=== PATIENT | female | born 1965 | race Caucasian/White ===

== ENCOUNTER 2018-08-18 12:29 | Inpatient (IN) ==
[2018-08-18] MEDS ORDERED: methylPREDNISolone 125 MG/2 ML VIAL IVP ONE (12:34)
[2018-08-18] MEDS ORDERED: 0.9 % Sodium Chloride 1,000 ML IVC ONE (12:34)
[2018-08-18] MEDS ORDERED: cefTRIAXone 2,000 MG in Water for inj. (sterile) 20 ML 10 ML IVP ONE (12:34)
[2018-08-18] MEDS ORDERED: Azithromycin 500 MG in D5% in Water 250 ML IVPB ONE (12:34)
[2018-08-18] MEDS ORDERED: Ipratropium/Albuterol Neb 3 ML IH ONE (12:34)
--- NOTE | 2018-08-18 12:43 | Emergency Department Note ---
Disposition Clinical Impression: Acute exacerbation of chronic obstructive airways disease Disposition: Admitted As Inpatient Condition: Fair Referrals: Ashely Rodriges, DESIGNER/WRITER [Primary Care Provider] - Forms: ED Satisfaction Letter SOB HPI - General Chief Complaint: ED Shortness of Breath/Dyspnea Stated Complaint: cough, shortness of breath, v/d, ear ache Time Seen by Provider: 08/18/18 12:34 Source: patient, EMS Mode of arrival: EMS Limitations: no limitations Nursing Notes Reviewed: Yes Vital Signs Reviewed: Yes - History of Present Illness Patient relates she started with harsh cough while work on Friday. She has subsequently developed earaches, headache diffuse body aches. States her joints and muscles hurt. She has had periods or shortness of breath which has resulted in some panic. She had one of these spells this morning and called 911. Squad found her to have a saturation of 80% on room air. She states her cough is harsh been nonproductive. She reports some nausea and vomiting with coughing has thrown up about 5-6 times a day. Despite this she has been pushing fluid intake. She has some diarrhea which has been frequently without blood or mucus. The diarrhea seems worse after eating. She reports he will exposures, including influenza. She has a history of COPD and states she has been using an old inhaler without relief. She also has BMI of 47 as a risk factor for influenza complications. Pt Subjective Complaint: shortness of breath, cough Onset (ago): day(s) (4) Context: recent illness Severity: moderate, severe Consistency/Duration: gradually worsening Improves with: rest Worsens with: exertion, coughing Known history of: COPD Associated symptoms: Reports: cough, wheezing, nausea/vomiting. Denies: chest pain, pain with inspiration, fever, sputum production, orthopnea, lower extremity pain, polyuria, polydipsia, parasthesias, palpitations, hemoptysis, diaphoresis, syncope, abdominal pain, rash Treatment prior to arrival: oxygen Cough present: Yes Cough Description: Dry, Hacking Cough Frequency: Intermittent Sputum production: No Sputum Amount: None - Related Data Home oxygen amount: none Home Medications Medication Instructions Recorded Confirmed Baclofen [Lioresal] 10 mg PO TID 07/24/16 07/24/16 Gabapentin [Neurontin] 400 mg PO HS 07/24/16 07/24/16 HydrOXYzine Pamoate [Vistaril] 50 mg PO QID 07/24/16 07/24/16 Ibuprofen [Motrin] 600 mg PO Q8HR PRN 07/24/16 07/24/16 Sertraline [Zoloft] 50 mg PO DAILY 07/24/16 07/24/16 traZODone [TraZODone] 150 mg PO HS 07/24/16 07/24/16 Previous Rx's Medication Instructions Recorded Amoxicillin [Amoxil] 500 mg PO TID #30 capsule 07/24/16 Tramadol HCl [Ultram] 50 mg PO QID PRN #14 tab 07/24/16 Amoxicillin/Clavulanate [Augmentin] 500 mg PO BIDWM #7 tablet 10/03/16 Allergies Allergy/AdvReac Type Severity Reaction Status Date / Time No Known Allergies Allergy Verified 07/24/16 17:36 All systems ED: reviewed and negative except as stated. Past Medical History - Past Medical History Attestation: Yes The following information was validated with the patient. Source: patient, nursing notes reviewed Medical history: Reports: COPD, hypertension, other (Elevated BMI) Surgical history: Reports: appendectomy Psychiatric history: Reports: anxiety, depression - Social History Smoking Status: Current every day smoker Smokeless Tobacco Status: No Alcohol use: Reports: occasionally Drug use: Reports: none Physical Exam - General Limitations: no limitations, age General appearance: alert, in distress - Head Head exam: atraumatic, normocephalic, normal inspection - Eye Eye exam: Present: normal appearance, PERRL, EOMI. Absent: scleral icterus, conjunctival injection - ENT ENT exam: normal exam, normal oropharynx, mucous membranes moist - Neck Neck exam: Present: normal inspection, full ROM, trachea midline. Absent: tenderness, meningismus, lymphadenopathy - Chest Chest inspection: Present: normal inspection, symmetric chest wall rise. Absent: tenderness - Respiratory Respiratory exam: Present: respiratory distress, wheezes, prolonged expiratory phase. Absent: accessory muscle use - Cardiovascular Cardiovascular exam: Present: regular rate, normal rhythm, tachycardia, normal heart sounds - Abdominal Exam Abdominal exam: Present: soft, Non-Tender, normal bowel sounds. Absent: tenderness, distention, guarding, rebound, rigidity - Extremities Exam Extremities exam: Present: normal inspection, full ROM, normal capillary refill. Absent: tenderness, pedal edema - Expanded Lower Extremity Exam Neurovascular/Tendon exam: Present: normal capillary refill. Absent: motor deficit, sensory deficit, tendon deficit Gait: observed and normal - Neurological Exam Neurological exam: Present: alert, oriented X3, CN II-XII intact, motor sensory deficit, reflexes normal - Psychiatric Psychiatric exam: Present: normal affect, normal mood - Skin Skin exam: Present: warm, dry, intact, normal color. Absent: rash, cyanosis, diaphoresis, pallor Course Course Narrative: With return of all testing, care is been discussed with the patient and Dr. Cody. She has been coordinated for continued inpatient treatment on COPD protocol with respiratory treatments and oxygen. Vital Signs Temperature 99.4 F 08/18/18 12:31 Pulse Rate 108 08/18/18 12:31 Respiratory Rate 20 08/18/18 12:31 Blood Pressure 171/87 08/18/18 12:31 O2 Sat by Pulse Oximetry 92 08/18/18 12:31 Temperature 99.4 F 08/18/18 12:31 Pulse Rate 108 08/18/18 13:37 Respiratory Rate 20 08/18/18 13:37 Blood Pressure 138/68 08/18/18 13:37 O2 Sat by Pulse Oximetry 92 08/18/18 13:37 Oxygen Delivery Oxygen Delivery Nasal Cannula Shortness of Breath/Dyspnea - Differential Diagnosis Likely: acute exacerbation of chronic obstructive airways disease, congestive heart failure, pneumonia, asthma with exacerbation - Medical Records Medical records reviewed: Yes I reviewed the patient's medical records. - Lab Data Lab results reviewed: Yes I reviewed the patient's lab results. Lab results narrative: Influenza nasal swab was negative. Result diagrams: 08/18/18 12:50 08/18/18 12:50 Lab Results 08/18/18 08/18/18 08/18/18 Range/Units 12:50 12:50 12:50 WBC 11.4 H (4.3-11.1) K/mcL RBC 4.98 H (3.82-4.97) M/mcL Hgb 13.8 (11.5-15.4) g/dL Hct 43.5 (35.3-44.9) % MCV 87.3 (83.0-100.0) fL MCH 27.7 L (28.0-33.3) pg MCHC 31.7 (31.6-35.5) g/dL RDW 13.9 (11.5-14.5) % Plt Count 270 (140-400) K/mcL MPV 8.6 L (9.4-12.4) fL Immature Gran % 0.9 (0-4) % Seg Neutrophils % 82.4 % Lymphocytes % 9.3 % Monocytes % 7.1 % Eosinophils % 0.0 % Basophils % 0.3 % Neutrophils # 9.4 H (1.6-8.9) K/mcL Lymphocytes # 1.1 (0.6-4.6) K/mcL Monocytes # 0.8 (0.0-1.3) K/mcL Eosinophils # 0.0 (0.0-0.6) K/mcL Basophils # 0.0 (0.0-0.2) K/mcL Sodium 139 (136-145) mEq/L Potassium 4.4 (3.5-5.1) mEq/L Chloride 99 (98-107) mEq/L Carbon Dioxide 34 H (23-29) mEq/L BUN 11 (6-20) mg/dL Creatinine 0.60 (0.60-1.20) mg/dL Est GFR ( Amer) > 60 (> 60) Est GFR (Non-Af Amer) > 60 (> 60) BUN/Creatinine Ratio 18 (6-26) Glucose 149 H (70-105) mg/dL Calculated Osmolality 290 (280-300) Lactic Acid 1.2 (0.5-2.2) mmol/L Calcium 8.8 (8.6-10.3) mg/dL Total Bilirubin 0.4 (0.3-1.0) mg/dL Direct Bilirubin 0.1 (0.0-0.2) mg/dL Indirect Bilirubin 0.3 (0.0-1.2) mg/dL AST 31 (13-39) Units/L ALT 30 (7-52) Units/L Alkaline Phosphatase 99 (34-104) Units/L Troponin I < 0.03 (< 0.04) ng/mL B-Natriuretic Peptide (Less than 100) pg/mL Serum Total Protein 7.5 (6.4-8.9) g/dL Albumin 4.0 (3.5-5.7) g/dL Globulin 3.5 (2.4-3.5) g/dL Albumin/Globulin Ratio 1.1 (1.1-2.2) 08/18/18 Range/Units 12:50 WBC (4.3-11.1) K/mcL RBC (3.82-4.97) M/mcL Hgb (11.5-15.4) g/dL Hct (35.3-44.9) % MCV (83.0-100.0) fL MCH (28.0-33.3) pg MCHC (31.6-35.5) g/dL RDW (11.5-14.5) % Plt Count (140-400) K/mcL MPV (9.4-12.4) fL Immature Gran % (0-4) % Seg Neutrophils % % Lymphocytes % % Monocytes % % Eosinophils % % Basophils % % Neutrophils # (1.6-8.9) K/mcL Lymphocytes # (0.6-4.6) K/mcL Monocytes # (0.0-1.3) K/mcL Eosinophils # (0.0-0.6) K/mcL Basophils # (0.0-0.2) K/mcL Sodium (136-145) mEq/L Potassium (3.5-5.1) mEq/L Chloride (98-107) mEq/L Carbon Dioxide (23-29) mEq/L BUN (6-20) mg/dL Creatinine (0.60-1.20) mg/dL Est GFR ( Amer) (> 60) Est GFR (Non-Af Amer) (> 60) BUN/Creatinine Ratio (6-26) Glucose (70-105) mg/dL Calculated Osmolality (280-300) Lactic Acid (0.5-2.2) mmol/L Calcium (8.6-10.3) mg/dL Total Bilirubin (0.3-1.0) mg/dL Direct Bilirubin (0.0-0.2) mg/dL Indirect Bilirubin (0.0-1.2) mg/dL AST (13-39) Units/L ALT (7-52) Units/L Alkaline Phosphatase (34-104) Units/L Troponin I (< 0.04) ng/mL B-Natriuretic Peptide 39 (Less than 100) pg/mL Serum Total Protein (6.4-8.9) g/dL Albumin (3.5-5.7) g/dL Globulin (2.4-3.5) g/dL Albumin/Globulin Ratio (1.1-2.2) - Radiology Data Radiology results reviewed: Yes I reviewed the patient's radiology results. Single view chest x-ray is performed. This does not demonstrate evidence for infiltrate, effusion, pneumothorax, foreign body or heart failure. The cardiac silhouette is mildly enlarged. I do not see abnormality to the osseous structures of the chest. This is on my interpretation. Impressions Chest X-Ray 08/18/18 12:34 IMPRESSION: Cardiomegaly with mild congestive heart failure. D/ / 08/18/2018 12:58:26 Shelly Delgado MD / jana Interpreting Provider: Shelly Delgado MD - EKG Data EKG attestation: Yes I reviewed and interpreted this EKG. EKG shows normal: Reports: sinus rhythm, axis, intervals, QRS complexes, ST-T waves Rate: Reports: tachycardia (108) Interpretation: Reports: no acute changes, normal EKG
[2018-08-18 13:05] LABS: Basophils % 0.3 %; Hematocrit 43.5 % (35.3-44.9); Hemoglobin 13.8 g/dL (11.5-15.4); Immature Granulocytes % 0.9 % (0-4); Lymphocytes # 1.1 K/mcL (0.6-4.6); Lymphocytes % 9.3 %; Mean Corpuscular HGB Conc 31.7 g/dL (31.6-35.5); Mean Corpuscular Hemoglobin 27.7 pg (28.0-33.3); Mean Corpuscular Volume 87.3 fL (83.0-100.0); Mean Platelet Volume 8.6 fL (9.4-12.4); Monocytes # 0.8 K/mcL (0.0-1.3); Monocytes % 7.1 %; Neutrophils # 9.4 K/mcL (1.6-8.9); Platelet Count 270 K/mcL (140-400); Red Blood Count 4.98 M/mcL (3.82-4.97); Red Cell Distribution Width 13.9 % (11.5-14.5); Segmented Neutrophils % 82.4 %
[2018-08-18 13:20] LABS: Alanine Aminotransferase 30 Units/L (7-52); Albumin/Globulin Ratio 1.1 (1.1-2.2); Alkaline Phosphatase 99 Units/L (34-104); Aspartate Amino Transferase 31 Units/L (13-39); BUN/Creatinine Ratio 18 (6-26); Bilirubin,Direct 0.1 mg/dL (0.0-0.2); Bilirubin,Indirect 0.3 mg/dL (0.0-1.2); Bilirubin,Total 0.4 mg/dL (0.3-1.0); Blood Urea Nitrogen 11 mg/dL (6-20); Calcium 8.8 mg/dL (8.6-10.3); Carbon Dioxide 34 mEq/L (23-29); Chloride 99 mEq/L (98-107); Globulin 3.5 g/dL (2.4-3.5); Glucose 149 mg/dL (70-105); Osmolality,Calculated 290 (280-300); Potassium 4.4 mEq/L (3.5-5.1); Sodium 139 mEq/L (136-145); Total Protein 7.5 g/dL (6.4-8.9); Troponin I < 0.03 ng/mL (< 0.04); eGFR For Non-African Americans > 60 (> 60)
[2018-08-18] MEDS ORDERED: 0.9 % Sodium Chloride 1,000 ML IVC SCH (13:56)
[2018-08-18] MEDS ORDERED: Mag Hydrox/Al Hydrox/Simeth 30 ML UDC PO PRN (13:56)
[2018-08-18] MEDS ORDERED: MOM Conc 10 ML UD.LIQ PO PRN (13:56)
[2018-08-18] MEDS ORDERED: Ondansetron 4 MG/2 ML VIAL IVP PRN (13:56)
[2018-08-18] MEDS ORDERED: Naloxone 0.4 MG/ML INJ IVP PRN (13:56)
[2018-08-18] MEDS: Ibuprofen 600 MG TABLET PO PRN (15:18)
[2018-08-18] MEDS ORDERED: Ipratropium/Albuterol Neb 3 ML IH SCH (16:00)
[2018-08-18] MEDS: hydrOXYzine pamoate 25 MG CAPSULE PO SCH ×2 (16:36→20:25)
[2018-08-18] MEDS ORDERED: predniSONE 20 MG TABLET PO SCH (17:00)
--- NOTE | 2018-08-18 18:17 | Internal Med History&Physical ---
Date of Encounter: 08/18/18 Time of Encounter: 17:40 Assessment and Plan (1) Acute bronchitis Current visit: Yes Status: Acute She has been started on Rocephin and Zithromax. Lactobacillus will be added. Chest CT will be done to further evaluate. Viral respiratory panel will be ordered. Qualifiers: Bronchitis organism: unspecified organism Qualified Code(s): J20.9 - Acute bronchitis, unspecified (2) Anxiety and depression Current visit: Yes Status: Chronic Continue Vistaril, Zoloft, and trazodone. Xanax will be ordered for prn use. (3) ALVAREZ (obstructive sleep apnea) Current visit: Yes Status: Chronic Continue CPAP at bedtime (4) Morbid obesity with BMI of 50.0-59.9, adult Current visit: Yes Status: Chronic TSH will be checked in a.m. Internal Medicine - H&P: HPI Chief complaint: Cough and dyspnea Admitted From: Emergency Dept Plans for Post Hospital Care: Home History of present illness: Ms. Mayes is a 53 year old female who came to emergency room complaining of cough and dyspnea onset July 18. She states the cough was nonproductive. She reports fevers up to 101 and sensation of chills. She had several episodes of nonbloody vomiting and diarrhea. She took OTC medication without significant improvement. She came to emergency room and was evaluated and was felt to have exacerbation of COPD. She was admitted to [facility] floor for ongoing care needs. Respiratory history is significant for having smoked since age 21 never exceeding one half pack per day. She denies home oxygen use. She has been diagnosed with ALVAREZ and uses CPAP at bedtime. Past Med Surg Social Fam HX - Past Medical History Medical history: COPD, other Psychiatric history: anxiety, depression, panic disorder, PTSD - Past Surgical History Surgical History: appendectomy Additional surgical history: Tonsillectomy, [place] Teeth extraction - Social History Smoking Status: Current every day smoker Packs per day: 1/2 PPD Smokeless Tobacco Status: No Alcohol use: none Drug use: none Internal Medicine - H&P: Meds HydrOXYzine Pamoate [Vistaril] 50 mg PO QID 07/24/16 [History] Ibuprofen [Motrin] 800 mg PO Q8HR PRN 07/24/16 [History] Sertraline [Zoloft] 200 mg PO DAILY 07/24/16 [History] traZODone [TraZODone] 150 mg PO HS 07/24/16 [History] Albuterol Sulfate [Albuterol Inhaler] 1 puff IH Q4HR PRN 08/18/18 [History] Allergy/AdvReac Type Severity Reaction Status Date / Time Erythromycin Base AdvReac Diarrhea Verified 08/18/18 14:41 ROS unobtainable: due to endotracheal tube (Cardiovascular: She denies hypertension TN heart failure angina DVT or pulmonary embolusRespiratory: As per history of present illnessGI: She denies disorders of her liver gallbladder or exocrine pancreasGU: She denies hematuria dysuria or kidney stonesNeurologic: She denies large distortion strokes or seizures.Endocrine: She denies diabetes thyroid disease or hyperlipidemiaHematology/oncology: She denies blood disorders cancers or anemiaPsychiatric: She has anxiety) All Systems PM: A 10-system review of systems was performed and is negative for pertinent findings except as documented above in the HPI. Review of systems: Gen.: She states her weight has increased over 100 pounds in the past year Cardiovascular: She denies hypertension TN heart failure angina DVT or pulmonary embolus Respiratory: As per history of present illness GI: She denies disorders of her liver gallbladder or exocrine pancreas : She denies hematuria dysuria or kidney stones Neurologic: She denies large distribution strokes or seizures. Endocrine: She denies diabetes thyroid disease or hyperlipidemia Hematology/oncology: She denies blood disorders cancers or anemia Psychiatric: She has depression and anxiety with panic attacks periodically. Sh e denies other mental health diagnoses. 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 She has had shoulder pain from frequent coughing the past few days - Constitutional Vitals: Temp Pulse Resp BP Pulse Ox 99.3 F 110 22 160/98 90 08/18/18 14:27 08/18/18 14:27 08/18/18 16:07 08/18/18 14:27 08/18/18 16:07 Exam: Gen.: She is well-developed morbidly obese female lying in bed who appears in mi ld to moderate dyspnea. She is wearing oxygen by oxy mask. HEENT: Head is atraumatic and normocephalic. Eyes: EOMI. There is no scleral icterus. Mouth: Mucosa is moist. Neck: Supple and nontender. There is no thyromegaly or adenopathy noted. Heart: Regular with rate approximately 104/m. Lungs: She has diminished breath sound diffusely. No wheezes or crackles are heard. Abdomen: She has a very large abdomen. It is nontender to palpation. Extremities: There is no cyanosis edema or clubbing noted. Dorsalis pedis and posttibial pulses are trace to 1+ palpable bilaterally. Neurologic: Mental status: She is talkative and a good historian. Cranial nerves: Smile is symmetric. Forehead wrinkles bilaterally. Tongue protrudes midline. EOMI. Motor: There is no pronator drift. Cerebellar: Finger to nose is intact bilaterally. Skin: Warm and dry Internal Med - H&P Results - Labs CBC & Chem 7: 08/18/18 12:50 08/18/18 12:50 Labs: Short CBC 08/18/18 Range/Units 12:50 WBC 11.4 H (4.3-11.1) K/mcL Hgb 13.8 (11.5-15.4) g/dL Hct 43.5 (35.3-44.9) % Plt Count 270 (140-400) K/mcL Neutrophils # 9.4 H (1.6-8.9) K/mcL BMP 08/18/18 12:50 Sodium 139 Potassium 4.4 Chloride 99 Carbon Dioxide 34 H BUN 11 Creatinine 0.60 Glucose 149 H Calcium 8.8 Cardiac Enzymes 08/18/18 Range/Units 12:50 Troponin I < 0.03 (< 0.04) ng/mL Liver Function 08/18/18 Range/Units 12:50 Total Bilirubin 0.4 (0.3-1.0) mg/dL Direct Bilirubin 0.1 (0.0-0.2) mg/dL AST 31 (13-39) Units/L ALT 30 (7-52) Units/L Alkaline Phosphatase 99 (34-104) Units/L Albumin 4.0 (3.5-5.7) g/dL - Impressions ITS Impressions Chest X-Ray 08/18/18 12:34 IMPRESSION: Cardiomegaly with mild congestive heart failure. D/ / 08/18/2018 12:58:26 Shelly Delgado MD / ashley Interpreting Provider: Shelly Delgado MD
[2018-08-18] MEDS: ALPRAZolam 0.5 MG TABLET PO PRN (18:39)
[2018-08-18] MEDS: predniSONE 20 MG TABLET PO SCH (20:25)
[2018-08-18] MEDS: traZODone 50 MG TABLET PO SCH (20:25)
--- NOTE | 2018-08-18 21:03 | Electrocardiograph Report ---
[place] [id number] Test Date: 2018-08-18 Pat Name: Geno Mayes Department: EDP-14 Room: [facility] Gender: F Principal Java Developer: : 1965 Requested By: Shai Candelario Order Number: [id number] Reading MD: Gaye Ravi Measurements Intervals [place] Rate: 108 P: 69 CA: 132 QRS: 79 QRSD: 92 T: 62 QT: 330 QTc: 443 Interpretive Statements Sinus tachycardia Electronically Signed On 08-18-2018 21:02:25 EST by Gaye Ravi
[2018-08-18] MEDS: Albuterol 2.5 MG/3 ML NEBULIZER IH PRN (22:40)
[2018-08-19] MEDS: ALPRAZolam 0.5 MG TABLET PO PRN (01:45)
[2018-08-19] MEDS: Ibuprofen 600 MG TABLET PO PRN (01:45)
[2018-08-19] MEDS: Albuterol 2.5 MG/3 ML NEBULIZER IH PRN (04:14)
[2018-08-19 05:54] LABS: Basophils # 0.1 K/mcL (0.0-0.2); Basophils % 0.7 %; Hemoglobin 12.7 g/dL (11.5-15.4); Immature Granulocytes % 2.1 % (0-4); Lymphocytes # 1.4 K/mcL (0.6-4.6); Lymphocytes % 12.9 %; Mean Corpuscular HGB Conc 30.2 g/dL (31.6-35.5); Mean Corpuscular Hemoglobin 27.3 pg (28.0-33.3); Mean Corpuscular Volume 90.3 fL (83.0-100.0); Mean Platelet Volume 8.6 fL (9.4-12.4); Monocytes # 0.7 K/mcL (0.0-1.3); Monocytes % 7.1 %; Neutrophils # 8.1 K/mcL (1.6-8.9); Platelet Count 277 K/mcL (140-400); Red Blood Count 4.65 M/mcL (3.82-4.97); Red Cell Distribution Width 14.3 % (11.5-14.5); Segmented Neutrophils % 77.2 %
[2018-08-19 06:11] LABS: BUN/Creatinine Ratio 24 (6-26); Blood Urea Nitrogen 15 mg/dL (6-20); Calcium 8.5 mg/dL (8.6-10.3); Carbon Dioxide 33 mEq/L (23-29); Chloride 102 mEq/L (98-107); Glucose 195 mg/dL (70-105); Magnesium 2.4 mg/dL (1.6-2.6); Osmolality,Calculated 298 (280-300); Potassium 4.3 mEq/L (3.5-5.1); Sodium 141 mEq/L (136-145); eGFR For Non-African Americans > 60 (> 60)
[2018-08-19 06:51] LABS: Platelet Estimate Normal (Normal)
--- NOTE | 2018-08-19 09:53 | Internal Med Progress Note ---
Date of Encounter: 08/19/18 Time of Encounter: 09:40 - Assessment and plan (1) Acute bronchitis Current Visit: Yes Status: Acute Assessment and plan: August 19. Continue Rocephin, Zithromax, and lactobacillus. Viral respiratory p arnol pending. Qualifiers: Bronchitis organism: unspecified organism Qualified Code(s): J20.9 - Acute bronchitis, unspecified (2) Anxiety and depression Current Visit: Yes Status: Chronic Assessment and plan: August 19. Continue Vistaril, Zoloft, trazodone, and prn Xanax. (3) ALVAREZ (obstructive sleep apnea) Current Visit: Yes Status: Chronic Assessment and plan: August 19. Continue CPAP at bedtime (4) Morbid obesity with BMI of 50.0-59.9, adult Current Visit: Yes Status: Chronic Assessment and plan: August 19. TSH has been ordered. - Subjective Interval history: August 19. She has no new complaints and feels slightly better. She is still dyspneic. - Constitutional Vitals: Temp Pulse Resp BP Pulse Ox 98 F 101 16 100/58 92 08/19/18 06:57 08/19/18 06:57 08/19/18 06:57 08/19/18 06:57 08/19/18 06:57 Exam: She is sitting on the side of the bed and appears slightly dyspneic at rest. Her affect is cheerful. Oxygen level decreased to 85% with removal of supplemental O2. I reviewed her medications and lab results. Chest CT could not be done because of inability to lie flat. Internal Medicine: Result - Labs CBC & Chem 7: 08/19/18 05:11 08/19/18 05:11 Labs: Short CBC 08/18/18 08/19/18 Range/Units 12:50 05:11 WBC 11.4 H 10.5 (4.3-11.1) K/mcL Hgb 13.8 12.7 (11.5-15.4) g/dL Hct 43.5 42.0 (35.3-44.9) % Plt Count 270 277 (140-400) K/mcL Neutrophils # 9.4 H 8.1 (1.6-8.9) K/mcL BMP 08/18/18 08/19/18 12:50 05:11 Sodium 139 141 Potassium 4.4 4.3 Chloride 99 102 Carbon Dioxide 34 H 33 H BUN 11 15 Creatinine 0.60 0.62 Glucose 149 H 195 H Calcium 8.8 8.5 L Cardiac Enzymes 08/18/18 Range/Units 12:50 Troponin I < 0.03 (< 0.04) ng/mL Liver Function 08/18/18 Range/Units 12:50 Total Bilirubin 0.4 (0.3-1.0) mg/dL Direct Bilirubin 0.1 (0.0-0.2) mg/dL AST 31 (13-39) Units/L ALT 30 (7-52) Units/L Alkaline Phosphatase 99 (34-104) Units/L Albumin 4.0 (3.5-5.7) g/dL - Impressions Impressions Chest X-Ray 08/18/18 12:34 IMPRESSION: Cardiomegaly with mild congestive heart failure. D/ / 08/18/2018 12:58:26 Shelly Delgado MD / ashley Interpreting Provider: Shelly Delgado MD Consult Discharge Plan - Plan Referrals: Ashely Rodriges, BINDER SORTER [Primary Care Provider] - 1 week
[2018-08-19] MEDS: hydrOXYzine pamoate 25 MG CAPSULE PO SCH ×4 (10:20→20:09)
[2018-08-19] MEDS: predniSONE 20 MG TABLET PO SCH ×2 (10:21→16:08)
[2018-08-19] MEDS: 0.9 % Sodium Chloride 1,000 ML IVC SCH ×3 (10:27→11:14)
[2018-08-19] MEDS: Ibuprofen 600 MG TABLET PO SCH ×3 (10:27→20:10)
[2018-08-19] MEDS: cefTRIAXone 2,000 MG in Water for inj. (sterile) 20 ML 20 ML IVPB SCH (12:29)
[2018-08-19] MEDS: Azithromycin 500 MG in D5% in Water 250 ML IVPB SCH (12:30)
[2018-08-19 15:18] LABS: ABG Base Excess 6 mEq/L (-2 to 3); ABG HCO3 37 mEq/L (21-27); ABG Oxygen Saturation 91 % (95-98); ABG PCO2 88 mmHg (35-45); ABG PH 7.23 pH Units (7.32-7.45); ABG PO2 75 mmHg (85-104); ABG TCO2 40 mEq/L (20-26)
[2018-08-19 16:53] LABS: ABG Base Excess 7 mEq/L (-2 to 3); ABG HCO3 37 mEq/L (21-27); ABG Oxygen Saturation 92 % (95-98); ABG PCO2 81 mmHg (35-45); ABG PH 7.27 pH Units (7.32-7.45); ABG PO2 78 mmHg (85-104); ABG TCO2 40 mEq/L (20-26); Blood Gas Respiration Rate 12
[2018-08-19] MEDS: traZODone 50 MG TABLET PO SCH (20:10)
[2018-08-20] MEDS: Ibuprofen 600 MG TABLET PO SCH ×4 (03:43→23:32)
[2018-08-20] MEDS: ALPRAZolam 0.5 MG TABLET PO PRN (06:22)
[2018-08-20] MEDS: 0.9 % Sodium Chloride 1,000 ML IVC SCH (06:22)
[2018-08-20 07:04] LABS: Basophils # 0.1 K/mcL (0.0-0.2); Basophils % 0.6 %; Eosinophils % 0.2 %; Hematocrit 41.9 % (35.3-44.9); Hemoglobin 12.5 g/dL (11.5-15.4); Lymphocytes # 2.3 K/mcL (0.6-4.6); Lymphocytes % 25.7 %; Mean Corpuscular HGB Conc 29.8 g/dL (31.6-35.5); Mean Corpuscular Hemoglobin 27.2 pg (28.0-33.3); Mean Corpuscular Volume 91.1 fL (83.0-100.0); Mean Platelet Volume 8.6 fL (9.4-12.4); Monocytes # 0.5 K/mcL (0.0-1.3); Monocytes % 5.9 %; Neutrophils # 5.8 K/mcL (1.6-8.9); Platelet Count 275 K/mcL (140-400); Red Cell Distribution Width 14.2 % (11.5-14.5); Segmented Neutrophils % 65.6 %
[2018-08-20 07:24] LABS: BUN/Creatinine Ratio 29 (6-26); Blood Urea Nitrogen 16 mg/dL (6-20); Calcium 8.5 mg/dL (8.6-10.3); Carbon Dioxide 35 mEq/L (23-29); Chloride 102 mEq/L (98-107); Glucose 125 mg/dL (70-105); Osmolality,Calculated 295 (280-300); Potassium 4.2 mEq/L (3.5-5.1); Sodium 141 mEq/L (136-145); eGFR For Non-African Americans > 60 (> 60)
[2018-08-20 07:38] LABS: Thyroid Stimulating Hormone 1.241 mcIU/mL (0.340-5.600)
[2018-08-20 08:19] LABS: ABG Base Excess 6 mEq/L (-2 to 3); ABG HCO3 37 mEq/L (21-27); ABG Oxygen Saturation 88 % (95-98); ABG PCO2 87 mmHg (35-45); ABG PH 7.23 pH Units (7.32-7.45); ABG PO2 69 mmHg (85-104); ABG TCO2 39 mEq/L (20-26); Blood Gas Respiration Rate 12
[2018-08-20 08:43] LABS: Platelet Estimate Normal (Normal)
[2018-08-20] MEDS: predniSONE 20 MG TABLET PO SCH (08:47)
[2018-08-20] MEDS: hydrOXYzine pamoate 25 MG CAPSULE PO SCH ×4 (08:48→21:19)
--- NOTE | 2018-08-20 10:02 | Internal Med Progress Note ---
Date of Encounter: 08/20/18 Time of Encounter: 09:52 - Assessment and plan (1) Acute bronchitis Current Visit: Yes Status: Acute Assessment and plan: August 19. Continue Rocephin, Zithromax, and lactobacillus. Viral respiratory p arnol pending. Qualifiers: Bronchitis organism: unspecified organism Qualified Code(s): J20.9 - Acute bronchitis, unspecified (2) Anxiety and depression Current Visit: Yes Status: Chronic Assessment and plan: August 19. Continue Vistaril, Zoloft, trazodone, and prn Xanax. August 20. Decrease Vistaril to avoid excessive sedation. Continue Zoloft, trazodone, and prn Xanax. (3) ALVAREZ (obstructive sleep apnea) Current Visit: Yes Status: Chronic Assessment and plan: August 19. Continue CPAP at bedtime (4) Morbid obesity with BMI of 50.0-59.9, adult Current Visit: Yes Status: Chronic Assessment and plan: August 19. TSH has been ordered. August 20. TSH was normal at 1.241. - Subjective Interval history: August 19. She has no new complaints and feels slightly better. She is still dyspneic. August 20. She has no new complaints. She still feels dyspneic. - Constitutional Vitals: Temp Pulse Resp BP Pulse Ox 98.2 F 88 20 114/75 87 08/20/18 07:15 08/20/18 07:15 08/20/18 07:15 08/20/18 07:15 08/20/18 07:15 Exam: She is lying in bed and appears in no acute distress. She is wearing BiPAP. She is alert and talkative. Lungs show a few scattered rhonchi. No inspiratory crackles are heard. Extremities show no edema. I reviewed her medications, lab results, and x-ray report. Internal Medicine: Result - Labs CBC & Chem 7: 08/20/18 06:40 08/20/18 06:40 Labs: Short CBC 08/20/18 Range/Units 06:40 WBC 8.9 (4.3-11.1) K/mcL Hgb 12.5 (11.5-15.4) g/dL Hct 41.9 (35.3-44.9) % Plt Count 275 (140-400) K/mcL Neutrophils # 5.8 (1.6-8.9) K/mcL BMP 08/20/18 06:40 Sodium 141 Potassium 4.2 Chloride 102 Carbon Dioxide 35 H BUN 16 Creatinine 0.56 L Glucose 125 H Calcium 8.5 L - ABG Interpretation ABG results: ABG ABG pH 7.23 pH Units (7.32-7.45) L 08/20/18 08:12 ABG pCO2 87 mmHg (35-45) H* 08/20/18 08:12 ABG pO2 69 mmHg (85-104) L 08/20/18 08:12 ABG O2 Saturation 88 % (95-98) L 08/20/18 08:12 - Impressions Impressions Chest X-Ray 08/20/18 07:00 IMPRESSION: Stable exam with mild pulmonary vascular congestion without overt pulmonary edema along with cardiomegaly. D/ / 08/20/2018 08:24:56 Minor Duncan MD / [place] Interpreting Provider: Minor Duncan MD Consult Discharge Plan - Plan Referrals: Ashely Rodriges, OIL PIPELINE OPERATOR [Primary Care Provider] - 1 week
[2018-08-20] MEDS: cefTRIAXone 2,000 MG in Water for inj. (sterile) 20 ML 20 ML IVPB SCH (13:16)
[2018-08-20] MEDS: Azithromycin 500 MG in D5% in Water 250 ML IVPB SCH (13:17)
[2018-08-20] MEDS: predniSONE 10 MG TABLET PO SCH (16:26)
[2018-08-20] MEDS: Acetaminophen 325 MG TABLET PO PRN (17:55)
[2018-08-20] MEDS: traZODone 50 MG TABLET PO SCH (21:20)
[2018-08-21] MEDS: Ibuprofen 600 MG TABLET PO SCH ×4 (04:30→21:15)
[2018-08-21] MEDS: hydrOXYzine pamoate 25 MG CAPSULE PO SCH ×4 (08:33→21:15)
[2018-08-21] MEDS: predniSONE 10 MG TABLET PO SCH ×2 (08:34→16:27)
[2018-08-21] MEDS: Acetaminophen 325 MG TABLET PO PRN (09:47)
[2018-08-21] MEDS: ALPRAZolam 0.5 MG TABLET PO PRN ×2 (09:47→21:16)
[2018-08-21] MEDS: cefTRIAXone 2,000 MG in Water for inj. (sterile) 20 ML 20 ML IVPB SCH (11:47)
[2018-08-21] MEDS: Azithromycin 500 MG in D5% in Water 250 ML IVPB SCH (11:48)
--- NOTE | 2018-08-21 12:23 | Internal Med Progress Note ---
Date of Encounter: 08/21/18 Time of Encounter: 12:15 - Assessment and plan (1) Acute bronchitis Current Visit: Yes Status: Acute Assessment and plan: August 19. Continue Rocephin, Zithromax, and lactobacillus. Viral respiratory p arnol pending. August 21. Continue present treatment. Recheck ABG in a.m. Add Symbicort. Possible discharge tomorrow if stable. Qualifiers: Bronchitis organism: unspecified organism Qualified Code(s): J20.9 - Acute bronchitis, unspecified (2) Anxiety and depression Current Visit: Yes Status: Chronic Assessment and plan: August 19. Continue Vistaril, Zoloft, trazodone, and prn Xanax. August 20. Decrease Vistaril to avoid excessive sedation. Continue Zoloft, trazodone, and prn Xanax. (3) ALVAREZ (obstructive sleep apnea) Current Visit: Yes Status: Chronic Assessment and plan: August 19. Continue CPAP at bedtime (4) Morbid obesity with BMI of 50.0-59.9, adult Current Visit: Yes Status: Chronic Assessment and plan: August 19. TSH has been ordered. August 20. TSH was normal at 1.241. - Subjective Interval history: August 19. She has no new complaints and feels slightly better. She is still dyspneic. August 20. She has no new complaints. She still feels dyspneic. August 21. She has no new complaints and feels slightly better. - Constitutional Vitals: Temp Pulse Resp BP Pulse Ox 97.9 F 61 17 101/67 94 08/21/18 07:00 08/21/18 07:00 08/21/18 07:00 08/21/18 07:00 08/21/18 07:00 Exam: She is sitting on the side of bed eating lunch. Oxygen saturation was 94-98% with her oxygen mask slightly dislodged. Lungs show prolonged expiratory phase with diminished airflow overall. No inspiratory crackles are heard. I reviewed her medications and lab results. Internal Medicine: Result - Labs CBC & Chem 7: 08/20/18 06:40 08/20/18 06:40 - ABG Interpretation ABG results: ABG ABG pH 7.23 pH Units (7.32-7.45) L 08/20/18 08:12 ABG pCO2 87 mmHg (35-45) H* 08/20/18 08:12 ABG pO2 69 mmHg (85-104) L 08/20/18 08:12 ABG O2 Saturation 88 % (95-98) L 08/20/18 08:12 Consult Discharge Plan - Plan Referrals: Ashely Rodriges, TALENT ACQUISITION ASSOCIATE [Primary Care Provider] - 1 week
[2018-08-21] MEDS: Budesonide/Formoterol 160/4.5 1 PUFF INH IH SCH ×2 (13:01→21:23)
[2018-08-21 13:32] LABS: ABG Base Excess 8 mEq/L (-2 to 3); ABG HCO3 38 mEq/L (21-27); ABG Oxygen Saturation 96 % (95-98); ABG PCO2 75 mmHg (35-45); ABG PH 7.31 pH Units (7.32-7.45); ABG PO2 98 mmHg (85-104); ABG TCO2 40 mEq/L (20-26)
[2018-08-21] MEDS: traZODone 50 MG TABLET PO SCH (21:15)
[2018-08-22] MEDS: Ibuprofen 600 MG TABLET PO SCH ×3 (04:30→17:00)
[2018-08-22 07:42] VITALS: BP 108/55
[2018-08-22] MEDS: predniSONE 10 MG TABLET PO SCH ×2 (08:13→17:00)
[2018-08-22] MEDS: hydrOXYzine pamoate 25 MG CAPSULE PO SCH ×3 (08:13→17:00)
[2018-08-22] MEDS ORDERED: Azithromycin 250 MG TABLET PO SCH (09:00)
[2018-08-22] MEDS: Albuterol 2.5 MG/3 ML NEBULIZER IH PRN (11:07)
[2018-08-22] MEDS: Budesonide/Formoterol 160/4.5 1 PUFF INH IH SCH (11:07)
[2018-08-22] MEDS: cefTRIAXone 2,000 MG in Water for inj. (sterile) 20 ML 20 ML IVPB SCH (12:50)
--- NOTE | 2018-08-22 14:42 | Discharge Summary ---
Orders not resulted at time of discharge: Pending orders 08/18/18 13:05 Culture,Blood [BC] Stat 08/21/18 13:20 Respiratory Infection Panel [MOLMIC] Routine Date of Encounter: 08/22/18 Time of Encounter: 14:30 - Discharge Diagnosis (1) Acute bronchitis Priority: Primary Status: Acute Qualifiers: Bronchitis organism: unspecified organism Qualified Code(s): J20.9 - Acute bronchitis, unspecified (2) Anxiety and depression Priority: Secondary Status: Chronic (3) ALVAREZ (obstructive sleep apnea) Priority: Secondary Status: Chronic (4) Morbid obesity with BMI of 50.0-59.9, adult Priority: Secondary Status: Chronic (5) Conjunctivitis Priority: Secondary Status: Acute Qualifiers: Conjunctivitis type: acute Acute conjunctivitis type: unspecified Laterality: left Qualified Code(s): H10.32 - Unspecified acute conjunctivitis, left eye Hospital course: Ms. Mayes is a 53 year old female who came to emergency room complaining of cough and dyspnea onset July 18. She states the cough was nonproductive. She reports fevers up to 101 and sensation of chills. She had several episodes of nonbloody vomiting and diarrhea. She took OTC medication without significant improvement. She came to emergency room and was evaluated and was felt to have exacerbation of COPD. She was admitted to [facility] floor for ongoing care needs. Initial orders were written by the emergency room physician. I saw her on August 18 and performed the history and physical. She was started empirically on Rocephin and Zithromax with lactobacillus. She required BiPAP for acute respiratory insufficiency. Her Vistaril dose was decreased to 25 mg 4 times a day to avoid oversedation. Follow-up blood gas on August 21 showed significant improvement. Leukocytosis and left shift resolved by day of discharge. She will continue with antibiotic, probiotic, and prednisone for 3 additional days at discharge. I encouraged her to become a nonsmoker. Room air oximetry on day of discharge showed saturation dropping to 84% prior to ambulation. Patient became dyspneic and required immediate restitution of supplemental oxygen for comfort and safety. She will be prescribed oxygen at 2 L/m by nasal cannula 06/01 with portable gas and concentrator. Qualifying diagnosis is COPD with hypoxemia not remedied by bronchodilators. She will bleed oxygen into her CPAP machine for use at bedtime. She developed left eye conjunctivitis and will be given TobraDex for 3 days at discharge. TSH returned normal at 1.2401. On August 22 she felt improved and stable for discharge home. She will follow with her PCP Ashely Rodriges CNP within 1 week. - Time Spent with Patient Total time spent providing and/or coordinating discharge services: - Discharge Medications Prescriptions: New Cefuroxime PO [Ceftin] 500 mg PO Q12HR #6 tablet Azithromycin [Zithromax] 250 mg PO DAILY #3 tablet predniSONE [PredniSONE] 10 mg PO BIDWM #6 tablet Tobramycin/Dex Opth DROPS [Tobradex Opth Drops] 1 drop LEFT EYE Q8H 3 Days #1 bottle HydrOXYzine Pamoate [Vistaril] 25 mg PO QID 365 Days capsule Continue traZODone [TraZODone] 150 mg PO HS Ibuprofen [Motrin] 800 mg PO Q8HR PRN PRN Reason: Pain Sertraline [Zoloft] 200 mg PO DAILY Albuterol Sulfate [Albuterol Inhaler] 1 puff IH Q4HR PRN PRN Reason: Wheezing Discontinued HydrOXYzine Pamoate [Vistaril] 50 mg PO QID Home Medications: Ibuprofen [Motrin] 800 mg PO Q8HR PRN 07/24/16 [History] Sertraline [Zoloft] 200 mg PO DAILY 07/24/16 [History] traZODone [TraZODone] 150 mg PO HS 07/24/16 [History] Albuterol Sulfate [Albuterol Inhaler] 1 puff IH Q4HR PRN 08/18/18 [History] Azithromycin [Zithromax] 250 mg PO DAILY #3 tablet 08/22/18 [Rx] Cefuroxime PO [Ceftin] 500 mg PO Q12HR #6 tablet 08/22/18 [Rx] HydrOXYzine Pamoate [Vistaril] 25 mg PO QID 365 Days capsule 08/22/18 [Rx] Tobramycin/Dex Opth DROPS [Tobradex Opth Drops] 1 drop LEFT EYE Q8H 3 Days #1 bottle 08/22/18 [Rx] predniSONE [PredniSONE] 10 mg PO BIDWM #6 tablet 08/22/18 [Rx] Allergies/Adverse Reactions: Allergy/AdvReac Type Severity Reaction Status Date / Time Erythromycin Base AdvReac Diarrhea Verified 08/18/18 14:41 Date of admission: 08/19/18 12:29 Primary care physician: Ashely Rodriges CNP - Constitutional Vitals: Temp Pulse Resp BP Pulse Ox 98.3 F 70 20 108/55 96 08/22/18 07:41 08/22/18 07:41 08/22/18 11:10 08/22/18 07:41 08/22/18 11:10 - Patient Status Disposition: Home, Self-Care Condition: Fair - Discharge Instructions Follow Up With: Ashely Rodriges CNP [Primary Care Provider] - 1 week - Diet and Activity Activity: resume usual activities as tolerated, wear oxygen at all times Diet: low fat, low cholesterol
== END 2018-08-22 18:45 | disposition home or self-care (01) | DRG 140 ==
LOC: EMEROOPIK 12:29 → INPPIK 12:29
PROVIDERS: ADMIT Internal Medicine; ATTEND Internal Medicine